=== PATIENT | male | born 1975 | race Caucasian/White ===

== ENCOUNTER 2021-03-12 18:08 | Emergency (ER) | payer OTHER, SELFPAY ==
--- NOTE | 2021-03-12 18:09 | NUR.NOTE ---
pt did not want to be seen. brought here from [facility], greeted by Dr Doty outside while sitting in [facility] van with guards. pt stated he did not want to be seen in the emergency room. Nursing Note:
--- NOTE | 2021-03-12 18:21 | ED.FU.B_ITS ---
Patient arrives in law enforcement custody at the prompting of senior living staff for leg infection. Patient refusing to come into the emergency department. Labs to the parking lot to evaluate the patient and patient does not wish to be evaluated and is refusing medical screening exam. Patient has decisional making capacity and provided informed refusal of services. Patient declines exam and wishes to leave against medical advise. I specifically emphasized the possibility of life-threatening or lifestyle modifying disease that would not be appropriately treated if they leave. Patient verbalized u nderstanding of my concerns and the potential for life threatening or lifestyle modifying disease. I recommended that the patient follow-up with primary care physician MAURICIO or return to the Emergency Department at any time for further treatment.
== END 2021-03-12 18:21 | disposition left against medical advice (07) ==
PROVIDERS: Emergency Provider Student in an Organized Health Care Education/Training Program
DX: Z53.21 Procedure and treatment not carried out due to patient leaving prior to being seen by health care provider (principal)

== ENCOUNTER 2021-04-25 17:49 | Emergency (ER) | payer OTHER, SELFPAY ==
[2021-04-25 18:02] VITALS: BP 131/89; PULSE 70; RESP 16; O2SAT 96
--- NOTE | 2021-04-25 18:12 | ED.GENADUL_ITS ---
Discharge Plan Disposition Patient Disposition: [facility] Condition: Stable Discharge Details Chief Complaint: Cellulitis Clinical Impression: Chronic venous stasis dermatitis of both lower extremities Primary Care Provider: Unknown,Unknown ED Provider: Clint Mckinney Discharge Instructions Instructions: Leg Edema (ED), Stasis Dermatitis (ED) Additional Instructions: Elevate the legs above the level of the heart at least 2 hours a day while awake. You had a Mepilex bandage applied to the dorsum of the left foot at the second and third toes which may stay on for 1 week and then be replaced with the additional bandage included in your discharge. Continue your Lasix twice daily. I recommend you have an outpatient ultrasound of both legs to rule out deep venous thrombosis. Return to the emergency department for any acute concerns. Medical Decision Making This is a 45-year-old male prisoner who reports weeks to months of lower extremity edema that is symmetric. He was evaluated by a telehealth visit with his cardiology team and recommended to increase his Lasix from once to twice daily. He states is also been treated for intermittent cellulitis with multiple rounds of Keflex. Today he has brawny lower extremity edema with chronic venous stasis changes. Do not appreciate significant cellulitis. He also has evidence of skin cracking at the base of the left second and third toes on the dorsum. This was dressed with Mepilex which she may continue at present. Patient states he does not wish further work-up in the emergency department at this time including declining laboratory or imaging. I will recommend that he have a follow-up outpatient ultrasound to rule out DVT and that he elevate the leg above the level heart at least 2 hours/day. HPI General Mode of arrival: ambulatory . Date/Time Provider Initiated Documentation: 04/25/21 18:05 . Limitations to Documentation: no limitations . Information obtained by: patient and police . History of Present Illness 45 year old M presents to the emergency department with the chief complaint of Bilateral leg swelling for weeks, described as moderate, Quality is described as dull and constant, and is localized to the left, right and lower extremity. Patient reports no radiation. Patient started experiencing this week(s) and it has been constant. No relieving factors improve symptom(s), No exacerbating factors reported . Patient notes denies chest pain, fever/chills and shortness of breath. Patient did receive the following treatments prior to arrival, other (Has tried topical treatment and multiple rounds of cephalexin, recently increased diuretic.) Related Data Home Medications Medication Instructions Recorded Confirmed atorvastatin 20 mg PO DAILY 04/25/21 04/25/21 buprenorphine HCl 8 mg SUBLINGUAL DAILY 04/25/21 04/25/21 bupropion HCl 75 mg PO DAILY 04/25/21 04/25/21 calcium carbonate [Tums] 200 mg PO BID 04/25/21 04/25/21 furosemide 40 mg PO BID 04/25/21 04/25/21 hydroxyzine HCl 50 mg PO BID PRN 04/25/21 04/25/21 insulin glargine [Lantus Solostar SUBCUT 04/25/21 U-100 Insulin] lisinopril 04/25/21 metoprolol succinate 25 mg PO DAILY 04/25/21 04/25/21 pregabalin 150 mg PO BID 04/25/21 04/25/21 sertraline 50 mg PO DAILY 04/25/21 04/25/21 spironolactone 25 mg PO DAILY 04/25/21 04/25/21 tamsulosin 0.4 mg PO DAILY 04/25/21 04/25/21 Allergies Allergy/AdvReac Type Severity Reaction Status Date / Time morphine Allergy Unverified 04/25/21 18:06 naloxone Allergy Unverified 04/25/21 18:06 General Stated Complaint: Cellulitis ASHLYN: 4 Review of Systems Narrative: Denies chest pain or palpitations, no shortness of breath or syncope, no fever. No difficulty breathing. [facility] Social History Smoking risk assessment performed?: No Exam Narrative Exam Narrative: GEN: awake, alert, oriented 3. Pleasant, well groomed, interactive. HEAD: Normocephalic, atraumatic EYES: PERRL, EOMI NECK: Full ROM, no WILY, no menigismus CHEST/RESP: No respiratory distress EXT: Full ROM, bilateral brawny edema and 2-3+ symmetric lower extremity edema with chronic venous stasis changes. The left foot at the second and third toe proximally has thickened skin with cracking present. Neuro: Grossly normal neurologic exam, conversant, interactive. Psych: Speech fluent, thoughts congruent, affect normal Course Vital Signs Vital signs: Vital Signs Pulse 70 04/25/21 18:02 Respiratory Rate 16 04/25/21 18:02 Blood Pressure 131/89 04/25/21 18:02 Pulse Oximetry 96 04/25/21 18:02 Pulse 70 04/25/21 18:02 Respiratory Rate 16 04/25/21 18:02 Blood Pressure 131/89 04/25/21 18:02 Blood Pressure Position Sitting 04/25/21 18:02 Pulse Oximetry 96 04/25/21 18:02 Oxygen Delivery Method Room Air 04/25/21 18:02 Oxygen Flow Rate 0 04/25/21 18:02
== END 2021-04-25 20:04 | disposition home or self-care (01) ==
PROVIDERS: Emergency Provider Emergency Medicine
DX: I87.8 Other specified disorders of veins (principal)
CPT/HCPCS: 99281; 99283